=== PATIENT | female | born 1990 | race American Indian/Alaskan Native ===

== ENCOUNTER 2018-10-02 01:44 | Emergency (ER) | payer BC, MEDICARE, OTHER ==
--- NOTE | 2018-10-02 05:04 | Emergency Department Report ---
ED General Adult HPI - General Chief complaint: Headache Stated complaint: MIGRAINE/HIGH BP Source: patient Mode of arrival: Ambulatory Limitations: No Limitations - History of Present Illness Initial comments: pt is a 28 y/o aaf who presents for frontal headache states due being out of bp medication pt bp is usually controlled with bistolic po daily she has been of for 2 weeks states migraine headache is usual occurance with onset of htn, headache is in usual location and usual intensity as headaches of past . Onset/Timin -: days(s) Location: head Radiation: non-radiation Severity scale (0 -10): 5 Quality: aching Consistency: constant Improves with: none Worsens with: movement Associated Symptoms: headaches Treatments Prior to Arrival: none - Related Data Home Medications Medication Instructions Recorded Confirmed Last Taken Labetalol [Normodyne] 200 mg PO DAILY 02/01/18 02/01/18 02/01/18 Previous Rx's Medication Instructions Recorded Last Taken Type Acetaminophen [Acetaminophen TAB] 1,000 mg PO Q6HR PRN #30 tablet 10/02/18 Unknown Rx Metoclopramide [Reglan] 10 mg PO Q6H PRN #30 tablet 10/02/18 Unknown Rx Nebivolol HCl [Bystolic] 5 mg PO QDAY #30 tablet 10/02/18 Unknown Rx diphenhydrAMINE [Benadryl CAP] 25 mg PO Q6HR PRN #30 capsule 10/02/18 Unknown Rx Allergies Allergy/AdvReac Type Severity Reaction Status Date / Time No Known Allergies Allergy Verified 10/02/18 01:49 ED Review of Systems ROS: Stated complaint: MIGRAINE/HIGH BP Other details as noted in HPI Constitutional: denies: chills, fever Eyes: denies: eye pain, eye discharge, vision change ENT: denies: ear pain, throat pain Respiratory: denies: cough, shortness of breath, wheezing Cardiovascular: denies: chest pain, palpitations Endocrine: no symptoms reported Gastrointestinal: denies: abdominal pain, nausea, diarrhea Genitourinary: denies: urgency, dysuria, discharge Musculoskeletal: denies: back pain, joint swelling, arthralgia Skin: denies: rash, lesions Neurological: headache. denies: vertigo Psychiatric: denies: anxiety, depression Hematological/Lymphatic: denies: easy bleeding, easy bruising ED Past Medical Hx - Past Medical History Previous Medical History?: Yes Hx Hypertension: Yes - Surgical History Past Surgical History?: Yes Additional Surgical History: open heart as baby - Social History Smoking Status: Never Smoker Substance Use Type: Alcohol - Medications Home Medications: Home Medications Medication Instructions Recorded Confirmed Last Taken Type Labetalol [Normodyne] 200 mg PO DAILY 02/01/18 02/01/18 02/01/18 History Acetaminophen [Acetaminophen TAB] 1,000 mg PO Q6HR PRN #30 tablet 10/02/18 Unknown Rx Metoclopramide [Reglan] 10 mg PO Q6H PRN #30 tablet 10/02/18 Unknown Rx Nebivolol HCl [Bystolic] 5 mg PO QDAY #30 tablet 10/02/18 Unknown Rx diphenhydrAMINE [Benadryl CAP] 25 mg PO Q6HR PRN #30 capsule 10/02/18 Unknown Rx ED Physical Exam - General Limitations: No Limitations General appearance: alert, in no apparent distress - Head Head exam: Present: atraumatic, normocephalic - Eye Eye exam: Present: normal appearance, PERRL, EOMI Pupils: Present: normal accommodation - ENT ENT exam: Present: normal orophraynx, mucous membranes moist, TM's normal bilaterally, normal external ear exam - Neck Neck exam: Present: normal inspection, full ROM. Absent: tenderness, meningismus, lymphadenopathy, thyromegaly - Respiratory Respiratory exam: Present: normal lung sounds bilaterally. Absent: respiratory distress, wheezes, rhonchi, stridor, chest wall tenderness, prolonged expiratory - Cardiovascular Cardiovascular Exam: Present: normal heart sounds - GI/Abdominal GI/Abdominal exam: Present: soft, normal bowel sounds. Absent: distended, tenderness, guarding, rebound, rigid, bruit, hernia - Rectal Rectal exam: Present: deferred - Extremities Exam Extremities exam: Present: normal inspection, full ROM, normal capillary refill. Absent: tenderness, pedal edema, joint swelling - Back Exam Back exam: Present: normal inspection, full ROM. Absent: tenderness, muscle spasm, rash noted - Neurological Exam Neurological exam: Present: alert, oriented X3, CN II-XII intact, normal gait, reflexes normal. Absent: motor sensory deficit - Psychiatric Psychiatric exam: Present: normal affect, normal mood - Skin Skin exam: Present: warm, dry, intact, normal color. Absent: rash ED Course Vital Signs 10/02/18 01:48 Temperature 98.9 F Pulse Rate 89 Respiratory 16 Rate Blood Pressure 171/109 O2 Sat by Pulse 100 Oximetry ED Medical Decision Making - Medical Decision Making Is improved medications Coumadin plan referred by systolic prescription Tylenol Benadryl Reglan when necessary headache PCP in 2-3 days patient given referral to [facility] patient will follow with same in 2-3 days and return immediately should symptoms worsen patient DC to home in stable condition at this time Critical care attestation.: If time is entered above; I have spent that time in minutes in the direct care of this critically ill patient, excluding procedure time. ED Disposition Clinical Impression: Essential (primary) hypertension Headache Qualifiers: Headache type: unspecified Headache chronicity pattern: acute headache Intractability: not intractable Qualified Code(s): R51 - Headache Disposition: DC-01 TO HOME OR SELFCARE Is pt being admited?: No Does the pt Need Aspirin: No Condition: Stable Instructions: Acute Headache (ED), Chronic Hypertension (ED), Hypertension (ED) Prescriptions: Acetaminophen [Acetaminophen TAB] 1,000 mg PO Q6HR PRN #30 tablet PRN Reason: Headache diphenhydrAMINE [Benadryl CAP] 25 mg PO Q6HR PRN #30 capsule PRN Reason: headache Nebivolol HCl [Bystolic] 5 mg PO QDAY #30 tablet Metoclopramide [Reglan] 10 mg PO Q6H PRN #30 tablet PRN Reason: Headache Referrals: OLGA BEATTY MD [Primary Care Provider] - 3-5 Days Forms: Work/School Release Form(ED) Time of Disposition: 06:00
[2018-10-02] MEDS ORDERED: DECADRON IM ONE (05:23)
[2018-10-02] MEDS ORDERED: TYLENOL PO ONE (05:24)
[2018-10-02] MEDS ORDERED: BENADRYL PO ONE (05:24)
[2018-10-02] MEDS ORDERED: CATAPRES PO ONE (05:24)
[2018-10-02] MEDS ORDERED: REGLAN PO ONE (05:24)
[2018-10-02 07:04] VITALS: BP 135/88
== END 2018-10-02 07:04 | disposition home or self-care (01) ==
LOC: ED 01:44
DX: I10 Essential (primary) hypertension (principal); Z98.890 Other specified postprocedural states; Z79.899 Other long term (current) drug therapy
CPT/HCPCS: 96372; 99282; J1100

== ENCOUNTER 2020-12-19 16:49 | Emergency (ER) | payer BC, OTHER ==
[2020-12-19] MEDS ORDERED: TETANUS,DIPH,PERTUSS(ACELL) VACCINE 0.5 ML SYRINGE IM ONE (18:03)
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
[2020-12-19 20:23] VITALS: BP 139/95
== END 2020-12-20 03:30 | disposition home or self-care (01) ==
LOC: ED 16:49
DX: S01.01XA Laceration without foreign body of scalp, initial encounter (principal); S50.12XA Contusion of left forearm, initial encounter; I10 Essential (primary) hypertension; Z98.890 Other specified postprocedural states; Y04.8XXA Assault by other bodily force, initial encounter; Y93.89 Activity, other specified; Y92.89 Other specified places as the place of occurrence of the external cause; Y99.8 Other external cause status
CPT/HCPCS: 70450; 70486; 90471; 90715; 99283

== ENCOUNTER 2020-12-26 19:05 | Emergency (ER) | payer BC ==
[2020-12-26 19:15] VITALS: BP 136/86
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
== END 2020-12-26 19:50 | disposition home or self-care (01) ==
LOC: ED 19:05
DX: S01.01XD Laceration without foreign body of scalp, subsequent encounter (principal); Y08.89XD Assault by other specified means, subsequent encounter; I10 Essential (primary) hypertension; Z48.02 Encounter for removal of sutures

== ENCOUNTER 2021-02-11 20:56 | Emergency (ER) | payer BC ==
--- NOTE | 2021-02-11 21:34 | Emergency Department Report ---
ED Shortness of Breath HPI - General Chief Complaint: Dyspnea/Respdistress Stated Complaint: RENETTA Time Seen by Provider: 02/11/21 21:26 Source: patient Mode of arrival: Ambulatory Limitations: No Limitations - History of Present Illness Initial Comments: Patient is a 30-year-old female presents emergency room complaints of shortness of breath that began approximately 45 minutes prior to arrival. She states that her breathing feels improved now. She states earlier today she was having a mild cough but that is resolved. She states that she intermittently has a sore throat. She denies any chest pain, fever, nausea, vomiting, diarrhea, pleuritic pain, leg swelling, calf pain, hemoptysis, facial swelling, rash, sensation of throat closing, difficulty swallowing. Past medical history of bronchitis, hypertension, congenital heart disease. No allergies to medications. She states her last menstrual cycle was 1 week ago. - Related Data Home Medications Medication Instructions Recorded Confirmed Last Taken labetaloL [Normodyne] 200 mg PO DAILY 02/01/18 02/01/18 02/01/18 Previous Rx's Medication Instructions Recorded Last Taken Type Acetaminophen [Acetaminophen TAB] 1,000 mg PO Q6HR PRN #30 tablet 10/02/18 Unknown Rx Metoclopramide [Reglan] 10 mg PO Q6H PRN #30 tablet 10/02/18 Unknown Rx Nebivolol HCl [Bystolic] 5 mg PO QDAY #30 tablet 10/02/18 Unknown Rx diphenhydrAMINE [Benadryl CAP] 25 mg PO Q6HR PRN #30 capsule 10/02/18 Unknown Rx Acetaminophen/Codeine [Tylenol 1 tab PO Q6H PRN #8 tab 12/19/20 Unknown Rx /Codeine # 3 tab] Ibuprofen [Motrin 600 MG tab] 600 mg PO Q8H PRN #12 tablet 12/19/20 Unknown Rx Allergies Allergy/AdvReac Type Severity Reaction Status Date / Time No Known Allergies Allergy Verified 10/02/18 01:49 ED Review of Systems ROS: Stated complaint: RENETTA Other details as noted in HPI Comment: All other systems reviewed and negative ED Past Medical Hx - Past Medical History Previous Medical History?: Yes Hx Hypertension: Yes - Surgical History Past Surgical History?: Yes Additional Surgical History: open heart as baby - Social History Smoking Status: Never Smoker Substance Use Type: None - Medications Home Medications: Home Medications Medication Instructions Recorded Confirmed Last Taken Type labetaloL [Normodyne] 200 mg PO DAILY 02/01/18 02/01/18 02/01/18 History Acetaminophen [Acetaminophen TAB] 1,000 mg PO Q6HR PRN #30 tablet 10/02/18 Unknown Rx Metoclopramide [Reglan] 10 mg PO Q6H PRN #30 tablet 10/02/18 Unknown Rx Nebivolol HCl [Bystolic] 5 mg PO QDAY #30 tablet 10/02/18 Unknown Rx diphenhydrAMINE [Benadryl CAP] 25 mg PO Q6HR PRN #30 capsule 10/02/18 Unknown Rx Acetaminophen/Codeine [Tylenol 1 tab PO Q6H PRN #8 tab 12/19/20 Unknown Rx /Codeine # 3 tab] Ibuprofen [Motrin 600 MG tab] 600 mg PO Q8H PRN #12 tablet 12/19/20 Unknown Rx ED Physical Exam - General Limitations: No Limitations General appearance: alert, in no apparent distress - Head Head exam: Present: atraumatic, normocephalic - Eye Eye exam: Present: normal appearance - ENT ENT exam: Present: mucous membranes moist - Respiratory Respiratory exam: Present: normal lung sounds bilaterally. Absent: respiratory distress, wheezes, rales, rhonchi, stridor, chest wall tenderness, accessory mus geri use, decreased breath sounds, prolonged expiratory - Cardiovascular Cardiovascular Exam: Present: regular rate, normal rhythm, normal heart sounds. Absent: systolic murmur, diastolic murmur, rubs, gallop - Neurological Exam Neurological exam: Present: alert, oriented X3 - Psychiatric Psychiatric exam: Present: normal affect, normal mood - Skin Skin exam: Present: warm, dry, intact ED Course Vital Signs 02/11/21 02/11/21 21:01 22:34 Temperature 98.2 F Pulse Rate 94 H 82 Respiratory 18 12 Rate Blood Pressure 150/94 Blood Pressure 142/93 [Left] O2 Sat by Pulse 100 100 Oximetry ED Medical Decision Making - Lab Data Vital Signs 02/11/21 02/11/21 21:01 22:34 Temperature 98.2 F Pulse Rate 94 H 82 Respiratory 18 12 Rate Blood Pressure 150/94 Blood Pressure 142/93 [Left] O2 Sat by Pulse 100 100 Oximetry - Radiology Data Radiology results: report reviewed Ordering Physician: DEJA DE LA CRUZ Date of Service: 02/11/21 Procedure(s): XR chest routine 2V Accession Number(s): [id number] cc: DEJA DE LA CRUZ Fluoro Time In Minutes: CHEST 2 VIEWS INDICATION / CLINICAL INFORMATION: SOB. COMPARISON: None available. FINDINGS: SUPPORT DEVICES: None. HEART / MEDIASTINUM: No significant abnormality. LUNGS / PLEURA: No significant pulmonary or pleural abnormality. No pneumothorax. ADDITIONAL FINDINGS: No significant additional findings. IMPRESSION: 1. No acute findings. Signer Name: Dereck Pizarro MD Signed: 02/11/2021 10:02 PM Workstation Name: [id number] Transcribed By: SB Dictated By: DERECK PIZARRO MD Electronically Authenticated By: DERECK PIZARRO MD Signed Date/Time: 02/11/212201 DD/ 01 TD/TT: - Medical Decision Making Patient is a 30-year-old female presents emergency room complaints of shortness of breath that began approximately 45 minutes prior to arrival. She states that her breathing feels improved now. She states earlier today she was having a mild cough but that is resolved. She states that she intermittently has a sore throat. She denies any chest pain, fever, nausea, vomiting, diarrhea, pleuritic pain, leg swelling, calf pain, hemoptysis, facial swelling, rash, sensation of throat closing, difficulty swallowing. Past medical history of bronchitis, hypertension, congenital heart disease. No allergies to medications. She states her last menstrual cycle was 1 week ago. Vitals are stable, no tachycardia or hypoxia. Breath sounds are clear bilaterally, no wheezing, no rales, no respiratory stress, no excessive muscle use. Chest x-ray with no acute process. Symptoms could be related to panic attack versus URI. Patient is PERC criteria negative for PE, PE unlikely. Patient has no clinical signs of bacterial pneumonia or bacterial bronchitis. Discussed supportive care and symptomatic treatment with patient. Discussed the importance of outpatient follow-up. Discussed strict return precautions. Advised patient May take Mucinex or TheraFlu [id number] to help with cough/cold symptoms. Increase your fluid intake over the next several days. Follow-up with your primary care doctor. Return to emergency room for any new or worsening symptoms. Recommend outpatient COVID-19 testing if positive will need to self quarantine for 10 days from onset of symptoms. Critical care attestation.: If time is entered above; I have spent that time in minutes in the direct care of this critically ill patient, excluding procedure time. ED Disposition Clinical Impression: SOB (shortness of breath), Cough, Sore throat Disposition: HOME / SELF CARE / HOMELESS Is pt being admited?: No Does the pt Need Aspirin: No Condition: Stable Additional Instructions: May take Mucinex or TheraFlu [id number] to help with cough/cold symptoms. Increase your fluid intake over the next several days. Follow-up with your primary care doctor. Return to emergency room for any new or worsening symptoms. Recommend outpatient COVID-19 testing if positive will need to self quarantine for 10 days from onset of symptoms. Referrals: OLGA BEATTY MD [Staff Physician] - 3-5 Days [facility] [Provider Group] - 3-5 Days Time of Disposition: 22:10 Print Language: GUAMANIAN
--- NOTE | 2021-02-11 22:07 | XRay Report ---
CHEST 2 VIEWS INDICATION / CLINICAL INFORMATION: SOB. COMPARISON: None available. FINDINGS: SUPPORT DEVICES: None. HEART / MEDIASTINUM: No significant abnormality. LUNGS / PLEURA: No significant pulmonary or pleural abnormality. No pneumothorax. ADDITIONAL FINDINGS: No significant additional findings. IMPRESSION: 1. No acute findings. Signer Name: Dereck Leal MD Signed: 02/11/2021 10:02 PM Workstation Name: [id number]
[2021-02-11 22:35] VITALS: BP 142/93
== END 2021-02-11 22:35 | disposition home or self-care (01) ==
LOC: ED 20:56
DX: R06.02 Shortness of breath (principal); R05.9 Cough, unspecified; J02.9 Acute pharyngitis, unspecified; I10 Essential (primary) hypertension
CPT/HCPCS: 71046; 99283